=== PATIENT | female | born 1980 | race Two or more races ===

== ENCOUNTER → 2017-07-18 | Outpatient (CLI) | payer OTHER ==
[2017-07-18 15:31] LABS: T4, Free (Free Thyroxine) 0.98 ng/dL (0.78-2.19)
[2017-07-19 02:12] LABS: ACTH 6.48 pg/mL (0.00-45.99)
== END ==
LOC: LABWHC1 14:38
PROVIDERS: ATTEND Internal Medicine Endocrinology, Diabetes & Metabolism
DX: D35.2 Benign neoplasm of pituitary gland (principal)
CPT/HCPCS: 36415; 82024; 82533; 84146; 84439; 84443; 84480

== ENCOUNTER → 2017-09-10 | Outpatient (CLI) | payer OTHER ==
--- NOTE | 2017-09-11 01:16 | MR ---
EXAMINATION TYPE: MR pituitary wo/w con DATE OF EXAM: 09/10/2017 COMPARISON: NONE HISTORY: Benign neoplasm of pituitary gland, hyperprolactinemia TECHNIQUE: Multiplanar, multisequence images of the brain and brainstem is performed without and with IV contras t, utilizing 7 mL intravenous Gadavist . Pituitary gland protocol. FINDINGS: Pituitary gland is upper limits of normal size within sella turcica. Pituitary stalk shows normal enhancement in the midline. Suprasellar cistern is maintained. Optic chiasm is not effaced. Po stcontrast images show heterogeneous enhancement with slightly diminished enhancement along the left margin seen best on sagittal images 9 and 10 in which small pituitary microadenoma cannot be excluded . No gross hydrocephalus is seen. Craniocervical junction is maintained. IMPRESSION: No pituitary macroadenoma, cannot exclude microadenoma along the left lateral margin. Adv ise neurosurgical consultation.
== END | disposition home or self-care (01) ==
LOC: RADMRIMAIN 17:48
PROVIDERS: ATTEND Internal Medicine Endocrinology, Diabetes & Metabolism
DX: D35.2 Benign neoplasm of pituitary gland (principal); E22.1 Hyperprolactinemia
CPT/HCPCS: 70553; A9581

== ENCOUNTER → 2017-10-23 | Outpatient (CLI) | payer OTHER ==
[2017-10-23 22:04] LABS: ACTH 10.5 pg/mL (0.00-45.99)
== END | disposition home or self-care (01) ==
LOC: LABWHC1 12:52
PROVIDERS: ATTEND Internal Medicine Endocrinology, Diabetes & Metabolism
DX: D35.2 Benign neoplasm of pituitary gland (principal)
CPT/HCPCS: 36415; 82024; 82533; 84146

== ENCOUNTER → 2017-11-18 | Outpatient (CLI) | payer OTHER ==
[2017-11-18 14:11] LABS: T4, Free (Free Thyroxine) 0.96 ng/dL (0.78-2.19)
[2017-11-18 21:02] LABS: ACTH <5.00 pg/mL (0.00-45.99)
== END | disposition home or self-care (01) ==
LOC: LABWHC1 13:10
PROVIDERS: ATTEND Internal Medicine Endocrinology, Diabetes & Metabolism
DX: D35.2 Benign neoplasm of pituitary gland (principal)
CPT/HCPCS: 36415; 82024; 82533; 84146; 84439; 84443

== ENCOUNTER → 2017-12-17 | Outpatient (CLI) | payer OTHER ==
[2017-12-17 17:18] LABS: Basophils % (A) 0 %; Eosinophils % (A) 1 %; HCT 39.3 % (34.0-46.0); Hypochromasia Slight; Lymphocytes # (A) 0.9 k/uL (1.0-4.8); Lymphocytes % (A) 18 %; MCH 24.9 pg (25.0-35.0); MCHC 30.6 g/dL (31.0-37.0); MCV 81.1 fL (80.0-100.0); Mean Platelet Volume 8.3; Monocytes # (A) 0.2 k/uL (0-1.0); Monocytes % (A) 3 %; Neutrophils # (A) 3.8 k/uL (1.3-7.7); Neutrophils % (A) 77 %; Platelet Count 284 k/uL (150-450); RBC 4.84 m/uL (3.80-5.40); RDW 13.4 % (11.5-15.5); WBC 4.9 k/uL (3.8-10.6)
[2017-12-18 03:29] LABS: Iron Saturation 29.49 (12.00-45.00)
== END | disposition home or self-care (01) ==
LOC: LABWHC1 16:41
PROVIDERS: ATTEND Physician Assistant Medical
DX: L63.8 Other alopecia areata (principal)
CPT/HCPCS: 36415; 83540; 83550; 85025

== ENCOUNTER → 2018-09-30 | Outpatient (CLI) | payer OTHER ==
[2018-10-01 03:36] LABS: Iron Saturation 25.89 (12.00-45.00)
[2018-10-01 04:34] LABS: Vitamin D 25 Hydroxy 10.2 ng/mL (30.0-100.0)
== END | disposition home or self-care (01) ==
LOC: LABWHC1 14:30
DX: L63.8 Other alopecia areata (principal)
CPT/HCPCS: 36415; 82306; 82728; 83540; 83550

== ENCOUNTER → 2019-10-09 | Outpatient (CLI) | payer OTHER ==
[2019-10-09 14:52] LABS: Basophils % (A) 1 %; Eosinophils # (A) 0.1 k/uL (0-0.7); Eosinophils % (A) 2 %; HCT 39.5 % (34.0-46.0); HGB 11.8 gm/dL (11.4-16.0); Hypochromasia Moderate; Lymphocytes # (A) 1.4 k/uL (1.0-4.8); Lymphocytes % (A) 34 %; MCH 24.5 pg (25.0-35.0); MCHC 29.9 g/dL (31.0-37.0); MCV 81.8 fL (80.0-100.0); Mean Platelet Volume 7.6; Monocytes # (A) 0.2 k/uL (0-1.0); Monocytes % (A) 6 %; Neutrophils # (A) 2.3 k/uL (1.3-7.7); Neutrophils % (A) 56 %; Platelet Count 255 k/uL (150-450); RBC 4.83 m/uL (3.80-5.40); RDW 13.1 % (11.5-15.5); WBC 4.2 k/uL (3.8-10.6)
[2019-10-09 19:08] LABS: Prolactin 18.1 ng/mL (2.8-29.2)
[2019-10-09 19:09] LABS: % Iron Saturation 48.39 (12.00-45.00); African American GFR (CKD) 133.1 (60.0-200.0); Albumin/Globulin Ratio 1.9 (1.60-3.17); Anion Gap 5.7 mmol/L (4.00-12.00); BUN/Creat Ratio 16.67 Ratio (12.00-20.00); Calcium 9.1 mg/dL (8.7-10.3); Carbon Dioxide 24.3 mmol/L (21.6-31.8); Chol/HDL Ratio 2.9; Ferritin 14.5 ng/mL (10.0-291.0); Globulin 2.1 g/dL (1.6-3.3); Non-African American GFR(CKD) 114.8 (60.0-200.0); Potassium 4.4 mmol/L (3.5-5.5); Total Bilirubin 0.5 mg/dL (0.3-1.2); Total Protein 6.1 g/dL (6.2-8.2)
[2019-10-09 19:32] LABS: Folate, Serum 19.4 ng/mL
[2019-10-09 22:29] LABS: Hemoglobin A1C 4.2 % (4.0-6.0)
== END | disposition home or self-care (01) ==
LOC: LABWHC1 14:06
PROVIDERS: ATTEND Family Medicine
DX: Z00.00 Encounter for general adult medical examination without abnormal findings (principal); R53.83 Other fatigue; D64.9 Anemia, unspecified; D35.00 Benign neoplasm of unspecified adrenal gland; L65.9 Nonscarring hair loss, unspecified; Z79.899 Other long term (current) drug therapy
CPT/HCPCS: 36415; 80053; 80061; 82180; 82306; 82607; 82728; 82746; 83036; 83516; 83540; 83550; 84146; 84443; 84630; 85025

== ENCOUNTER → 2020-03-16 | Outpatient (CLI) | payer OTHER ==
--- NOTE | 2020-03-16 16:02 | XR ---
EXAMINATION TYPE: XR cervical spine comp DATE OF EXAM: 03/16/2020 COMPARISON: NONE HISTORY: Pain TECHNIQUE: 4 views submitted FINDINGS: Odontoid intact. There is narrowing of the disc space level C3-4, C4-5 and C5-6. Posterior spondylosis seen most pronounced at C4-5 and C5-6. Mild facet arthropathy. No compression deformities . Prevertebral soft tissue structures within normal limits. IMPRESSION: Multilevel degenerative disc disease.
--- NOTE | 2020-03-16 16:03 | XR ---
EXAMINATION TYPE: XR facial bones complete DATE OF EXAM: 03/16/2020 COMPARISON: NONE HISTORY: Pain TECHNIQUE: 3 views are submitted FINDINGS: Mild mucosal thickening noted involving the maxillary sinuses. There is a nasal septal dre ation. Visualized osseous structures intact. IMPRESSION: 1. Osseous structures are intact. Correlate for chronic sinusitis.
== END | disposition home or self-care (01) ==
LOC: RADXRMAIN 14:38
PROVIDERS: ATTEND Family Medicine
DX: M50.30 Other cervical disc degeneration, unspecified cervical region (principal); R68.84 Jaw pain
CPT/HCPCS: 70150; 72050

== ENCOUNTER → 2020-05-17 | Outpatient (CLI) | payer OTHER ==
--- NOTE | 2020-05-17 14:14 | CT ---
EXAMINATION TYPE: CT tmj maxillofacial wo con DATE OF EXAM: 05/17/2020 COMPARISON: None HISTORY: 39-year-old female M26.601, Left sided mandibular/tmj pain. TECHNIQUE: Contiguous axial scanning of the facial bones and TMJs without IV contrast. Coronal recons tructions performed. CT DLP: 682 mGycm Automated exposure control for dose reduction was used. FINDINGS: Rightward nasal septal deviation. Trace mucosal thickening maxillary sinuses. The osteomeatal complex es are patent. Mild cerebral cortical volume loss in the visualized brain with dense anterior dural calcifications a long the falx. Orbits and globes are intact. Mastoid air cells and middle ear cavities are clear. The mandible and TMJs appear intact. There may be mild degenerative change on both sides. Parotid glands mildly atrophic. IMPRESSION: TMJs APPEAR INTACT. THERE MAY BE MILD DEGENERATIVE CHANGE ON BOTH SIDES. TRACE MUCOSAL THICKENING MAX ILLARY SINUSES. RIGHTWARD NASAL SEPTAL DEVIATION.
== END ==
LOC: RADCTMAIN 12:12
PROVIDERS: ATTEND Family Medicine
DX: J34.89 Other specified disorders of nose and nasal sinuses (principal); J34.2 Deviated nasal septum
CPT/HCPCS: 70486

== ENCOUNTER → 2021-01-16 | Outpatient (CLI) | payer OTHER ==
[2021-01-16 22:19] LABS: Anion Gap 11.8 mmol/L (4.00-12.00); BUN/Creat Ratio 20.13 Ratio (12.00-20.00); Blood Urea Nitrogen 12.4 mg/dL (9.0-27.0); Calcium 9.3 mg/dL (8.7-10.3); Potassium 4.3 mmol/L (3.5-5.5); Prolactin 21.3 ng/mL (2.800-29.200)
== END | disposition home or self-care (01) ==
LOC: LABWHC1 12:15
PROVIDERS: ATTEND Internal Medicine Endocrinology, Diabetes & Metabolism
DX: E22.1 Hyperprolactinemia (principal)
CPT/HCPCS: 36415; 80048; 84146

== ENCOUNTER → 2021-08-16 | Outpatient (CLI) | payer OTHER | END | disposition home or self-care (01) | LOC: LABWHC1 12:25 | PROVIDERS: ATTEND Internal Medicine Endocrinology, Diabetes & Metabolism | DX: E22.1 Hyperprolactinemia (principal) | CPT/HCPCS: 36415; 84146 ==

== ENCOUNTER → 2022-01-15 | Outpatient (CLI) | payer OTHER ==
[2022-01-15 15:15] LABS: African American GFR (CKD) 129.1 (60.0-200.0); Anion Gap 8.6 mmol/L (10.00-18.00); BUN/Creat Ratio 21.87 Ratio (12.00-20.00); Blood Urea Nitrogen 13.8 mg/dL (9.0-27.0); Calcium 9.1 mg/dL (8.7-10.3); Carbon Dioxide 24.4 mmol/L (20.0-27.5); Non-African American GFR(CKD) 111.4 (60.0-200.0); Potassium 4.4 mmol/L (3.5-5.5); Prolactin 15.6 ng/mL (2.800-29.200)
== END | disposition home or self-care (01) ==
LOC: LABWHC1 10:20
PROVIDERS: ATTEND Internal Medicine Endocrinology, Diabetes & Metabolism
DX: E22.1 Hyperprolactinemia (principal)
CPT/HCPCS: 36415; 80048; 84146

== ENCOUNTER → 2022-08-21 | Outpatient (CLI) | payer OTHER ==
--- NOTE | 2022-08-22 16:39 | MM ---
Reason for Exam: Screening (asymptomatic). Baseline mammogram. Patient History: Menarche at age 13. First Full-Term at age 17. Currently using Hormonal Contraceptives, starting at age 30. Risk Values: Shikha 5 year model risk: 0.5%. NCI Lifetime model risk: 7.2%. Prior Study Comparison: Patient's first Mammogram. Tissue Density: The breast tissue is heterogeneously dense. This may lower the sensitivity of mammography. Findings: Analyzed By CAD. Pattern appears symmetrical. There is a benign-appearing punctate calcifications in the outer right breast. No suspicious groups of microcalcifications, spiculated or lobular masses, architectural distortion or other secondary signs of malignancy are mammographically apparent. Overall Assessment: Benign, BI-RAD 2 Management: Screening Mammogram of both breasts in 1 year. A negative mammogram report should not preclude additional follow up of suspicious palpable abnormalities. Patient should continue monthly self breast exam. A clinical breast exam by your physician is recommended on an annual basis and results should be correlated with mammographic findings. Electronically signed and approved by: Edwin Acuña D.O. Radiologis
== END | disposition home or self-care (01) ==
LOC: RADMAMWWP 13:48
PROVIDERS: ATTEND Internal Medicine
DX: Z12.31 Encounter for screening mammogram for malignant neoplasm of breast (principal)
CPT/HCPCS: 77067

== ENCOUNTER → 2024-02-11 | Outpatient (CLI) | payer OTHER ==
[2024-02-11 16:36] LABS: Creatinine,Urine Random 186.9 mg/dL; Protein/Creatinine Ratio,Urine 0.027
[2024-02-11 19:27] LABS: Basophils # (A) 0.02 X 10*3/uL (0.00-0.10); Basophils % (A) 0.7 %; Eosinophils # (A) 0.05 X 10*3/uL (0.04-0.35); Eosinophils % (A) 1.8 %; HGB 11.6 g/dL (12.0-15.0); Lymphocytes # (A) 1.26 X 10*3/uL (0.90-5.00); Lymphocytes % (A) 44.5 %; MCH 24.7 pg (27.0-32.0); MCHC 31.4 g/dL (32.0-37.0); MCV 78.9 FL (80.0-97.0); Mean Platelet Volume 12.7 FL (9.5-12.2); Monocytes # (A) 0.26 X 10*3/uL (0.20-1.00); Monocytes % (A) 9.2 %; NRBC Per 100 WBC 0 X 10*3/uL (0.00-0.01); Neutrophils # (A) 1.23 X 10*3/uL (1.80-7.70); Neutrophils % (A) 43.4 %; Platelet Count 302 X 10*3/uL (140-440); RBC 4.69 X 10*6/uL (4.10-5.20); RDW 12.3 % (11.5-14.5); WBC 2.83 X 10*3/uL (4.50-10.00)
[2024-02-11 19:30] LABS: Appearance,Urine Cloudy (Clear); Bilirubin,Urine Negative (Negative); Blood,Urine Trace (Negative); Color,Urine Yellow (Yellow); Ketones,Urine Trace (Negative); Nitrite,Urine Positive (Negative); PH, Urine 6.5; Urobilinogen,Urine 0.2 E.U./DL
[2024-02-11 19:42] LABS: Erythrocyte Sedimentation Rate 20 mm/Hr (0-20)
[2024-02-11 20:07] LABS: Bacteria,Urine 4+ (None Seen)
[2024-02-11 20:49] LABS: Creatine Kinase 47 U/L (26-186)
[2024-02-11 20:50] LABS: % Iron Saturation 37.97 (12.00-45.00); ALT 16 U/L (8-44); AST 19 U/L (13-35); Albumin 4.4 g/dL (3.8-4.9); Albumin/Globulin Ratio 1.83 Ratio (1.60-3.17); Alkaline Phosphatase 39 U/L (41-126); Blood Urea Nitrogen 16.5 mg/dL (9.0-27.0); C Reactive Protein <0.30 mg/dL (0.00-0.80); Calcium 9.6 mg/dL (8.7-10.3); Carbon Dioxide 23.6 mmol/L (21.6-31.8); Chloride 105 mmol/L (96-109); Chol/HDL Ratio 3.05 Ratio; Globulin 2.4 g/dL (1.6-3.3); Glucose 83 mg/dL (70-110); Iron 120 UG/DL (50-170); LDL Cholesterol,Calculated 88.3 mg/dL (0.0-131.0); Magnesium 2.1 mg/dL (1.5-2.4); Phosphorus 3.8 mg/dL (2.4-5.1); Potassium 4.6 mmol/L (3.5-5.5); Sodium 139 mmol/L (135-145); T4, Free (Free Thyroxine) 1.17 ng/dL (0.80-1.80); Total Bilirubin 0.5 mg/dL (0.3-1.2); Total Iron Binding Capacity 316 UG/DL (228-460); Total Protein 6.8 g/dL (6.2-8.2); Uric Acid 3.9 mg/dL (2.9-7.7); VLDL Calculation 13.84 mg/dL (5.00-40.00)
[2024-02-11 21:22] LABS: Anti-DNA, DS unit <1.0 IU/mL; DNA Double-Stranded Negative (Negative)
[2024-02-11 22:46] LABS: Protein, Total 6.9 g/dL (6.2-8.2)
[2024-02-12 13:02] LABS: C-ANCA <1:20 Titer (<1:20)
[2024-02-14 14:57] LABS: Albumin 4.27 g/dL (3.80-4.90); Gamma Globulin 1.01 g/dL (0.70-1.50)
== END | disposition home or self-care (01) ==
LOC: LABWHC1 13:45
PROVIDERS: ATTEND Internal Medicine
DX: Z00.00 Encounter for general adult medical examination without abnormal findings (principal); D64.9 Anemia, unspecified; E87.8 Other disorders of electrolyte and fluid balance, not elsewhere classified; M10.9 Gout, unspecified; K75.9 Inflammatory liver disease, unspecified; E78.5 Hyperlipidemia, unspecified; N39.0 Urinary tract infection, site not specified; N20.0 Calculus of kidney; M35.9 Systemic involvement of connective tissue, unspecified; L65.9 Nonscarring hair loss, unspecified; D49.7 Neoplasm of unspecified behavior of endocrine glands and other parts of nervous system
CPT/HCPCS: 36415; 80053; 80061; 81001; 82043; 82306; 82550; 82570; 82728; 83540; 83550; 83735; 84100; 84146; 84156; 84165; 84439; 84443; 84481; 84550; 85025; 85652; 86038; 86140; 86160; 86162; 86225; 86255; 86334; 86335; 87077; 87086; 87186

== ENCOUNTER → 2024-03-24 | Outpatient (CLI) | payer OTHER ==
--- NOTE | 2024-03-24 13:53 | XR ---
EXAMINATION TYPE: XR chest 2V DATE OF EXAM: 03/24/2024 COMPARISON: NONE CLINICAL INDICATION: Female, 43 years old with history of R05.9 COUGH; , TECHNIQUE: XR chest 2V views of the chest. FINDINGS: The lungs are clear and there is no pneumothorax, pleural effusion, or focal pneumonia. Heart size normal and no overt failure. Osseous structures intact. Curvature of the spine. IMPRESSION: 1. No acute process. [facility], , 03/24/2024 1:51 PM
[2024-03-24 17:47] LABS: Creatinine,Urine Random 81.4 mg/dL; Protein/Creatinine Ratio,Urine 0.098
[2024-03-24 19:34] LABS: Appearance,Urine Clear (Clear); Bilirubin,Urine Negative (Negative); Blood,Urine Trace (Negative); Color,Urine Yellow (Yellow); Ketones,Urine Negative (Negative); Nitrite,Urine Positive (Negative); Specific Gravity,Urine 1.016 (1.001-1.030); Urobilinogen,Urine 0.2 E.U./DL
[2024-03-24 19:37] LABS: Urine Creatinine 93.2 mg/dL (28.0-217.0)
[2024-03-24 19:44] LABS: Bacteria,Urine 3+ (None Seen)
== END | disposition home or self-care (01) ==
LOC: LABWHC1 13:01
PROVIDERS: ATTEND Internal Medicine
DX: N39.0 Urinary tract infection, site not specified (principal); R05.9 Cough, unspecified
CPT/HCPCS: 71046; 81001; 82043; 82570; 84156; 87086

== ENCOUNTER → 2024-06-22 | Outpatient (CLI) | payer OTHER | END | disposition home or self-care (01) | LOC: LABWHC1 12:48 | PROVIDERS: ATTEND Internal Medicine Endocrinology, Diabetes & Metabolism | DX: E22.1 Hyperprolactinemia (principal) | CPT/HCPCS: 36415; 84146 ==